=== PATIENT | male | born 1955 ===

== ENCOUNTER 2023-12-01 08:30 | Day surgery (SDC) | payer OTHER ==
[2023-11-24 09:19] LABS: PH,URINE 5.5 (5.0-8.0); URINE APPEARANCE Clear; URINE BILIRRUBIN Negative (NEGATIVE); URINE BLOOD Negative; URINE COLOR Yellow; URINE GLUCOSE Negative (NEGATIVE); URINE LEUKOCYTE Negative; URINE NITRATE Negative; URINE PROTEIN Trace (NEGATIVE); URINE UROBILINOGEN 0.2 E.U./dl
[2023-11-24 09:20] LABS: HEMATOCRIT 43.4 % (39.0-48.0); HEMOGLOBIN 14.8 g/dL (13-16.00); MEAN CELL VOLUME 90.4 fL (80.0-100.00); MEAN CORPUSCULAR HEMOGLOBIN 30.7 pg (27.00-32.0); PLATELET COUNT 137 K/uL (150-450); RED BLOOD COUNT 4.81 M/uL (4.00-6.00); RED CELL DISTRIBUTION WIDTH 13.8 % (11.5-14.5)
[2023-11-24 09:22] LABS: URINE BACTERIA 8.8 uL (0.0-1933); URINE RBC 4.1 uL (0.0-20.8)
[2023-11-24 09:47] LABS: INR 0.95; PARTIAL THROMBOPLASTIN TIME 28.6 SECONDS (22.0-34.0)
[2023-11-24 09:49] LABS: URINE EPITHELIAL CELLS 1.3 uL (0.0-38.8)
[2023-11-24 09:54] LABS: BILIRUBIN TOTAL 0.8 mg/dL (0.3-1.2); CALCIUM 9.2 mg/dL (8.5-10.1); CREATININE SERUM 0.92 mg/dL (0.70-1.30); GFR 82.57; GLOBULINA 4.2 G/DL (2.4-3.5); POTASSIUM 4.51 mEq/L (3.5-5.1); TOTAL PROTEIN 8.2 gm/dL (6.4-8.2)
[~2023-12-01] VITALS: Ht 162.6 cm; Wt 63.5 kg
[~2023-12-01 08:30] MED LIST: ZESTRIL2.5 MG PO
[2023-12-01] MEDS ORDERED: MIRALAX17 GM PO (11:04)
[2023-12-01] MEDS ORDERED: KETO10TA2 PO (11:04)
[2023-12-01] MEDS ORDERED: TYLENOL ARTHRI650 MG PO (11:04)
[2023-12-01] MEDS ORDERED: TRAMADOL HCL50 MG PO (11:04)
== END 2023-12-01 16:55 | disposition home or self-care (01) ==
LOC: CIR.AMB 08:30
PROVIDERS: ATTEND Surgery
DX: K40.90 Unilateral inguinal hernia, without obstruction or gangrene, not specified as recurrent (principal); K42.9 Umbilical hernia without obstruction or gangrene; Z20.822 Contact with and (suspected) exposure to COVID-19; I10 Essential (primary) hypertension
CPT/HCPCS: 49591; 49650; C1781